=== PATIENT | male | born 1970 | race Caucasian/White ===

== ENCOUNTER → 2018-12-24 | Outpatient (CLI) | payer BC ==
--- NOTE | 2018-12-25 09:02 | US ---
EXAMINATION TYPE: US groin RT DATE OF EXAM: 12/24/2018 COMPARISON: NONE CLINICAL HISTORY: C85.98Non-Hodgkin lymphoma, unspecified, lymp, R59. Hx lymphoma x 1991 and 2001. Ri ght groin palpable. Area of palpable scanned. Enlarged lymph node visualized - 4.1 x 2.4 x 1.6 cm. Lobular contour is pr esent. Fatty hilus is present. IMPRESSION: Abnormal enlarged right groin node.
== END ==
LOC: RADUSMAIN 17:37
PROVIDERS: ATTEND Internal Medicine Hematology & Oncology
DX: R93.5 Abnormal findings on diagnostic imaging of other abdominal regions, including retroperitoneum (principal); R59.1 Generalized enlarged lymph nodes

== ENCOUNTER 2019-01-05 08:33 | Day surgery (SDC) | payer BC ==
[2019-01-05 08:52] VITALS: RESP 20; TEMP 97.6
[2019-01-05] MEDS ORDERED: ALPRAZolam 0.5 MG TAB PO STA (09:04)
[2019-01-05 10:06] VITALS: BP 135/90; PULSE 84
--- NOTE | 2019-01-05 10:25 | US ---
ULTRASOUND GUIDED CORE BIOPSY RIGHT GROIN LYMPHADENOPATHY: CLINICAL HISTORY: Enlarged lymph nodes within the right groin FINDINGS: The procedure was explained to the patient. The risks, complications, benefits and alternatives were discussed and any questions were answered. Informed consent was obtained. Patient was placed supin e on the ultrasound table and prepped and draped in the usual sterile fashion. Utilizing a 18-gauge core biopsy needle, four passes were made into the requested lymph node. Patient was stable throughout the procedure. Pathology is pending. All elements of maximal barrier technique were utilized. IMPRESSION: 1. Successful ultrasound guided core biopsy right groin lymph node. Pathology pending.
== END 2019-01-05 10:25 | disposition home or self-care (01) ==
LOC: RADPROMAIN 08:33
PROVIDERS: ATTEND Internal Medicine Hematology & Oncology
DX: R59.0 Localized enlarged lymph nodes (principal)
CPT/HCPCS: 38505; 76942; 88305; 88341; 88342

== ENCOUNTER → 2020-05-26 | Outpatient (CLI) | payer BC ==
--- NOTE | 2020-05-26 13:24 | XR ---
Lumbosacral spine HISTORY: Low back pain 5 views of lumbosacral spine Lumbar vertebral bodies show preserved height, alignment, and bone mineralization. Disc spaces are ma intained with exception of some mild disc height loss L4-5, mild spondylosis. No evident spondylolysi s. IMPRESSION: Mild degenerative disc changes, consider lumbar MRI.
== END | disposition home or self-care (01) ==
LOC: RADXRYALE 11:16
PROVIDERS: ATTEND Physician Assistant Medical
DX: M51.37 Other intervertebral disc degeneration, lumbosacral region (principal)
CPT/HCPCS: 72110

== ENCOUNTER → 2020-06-14 | Outpatient (CLI) | payer BC ==
--- NOTE | 2020-06-14 09:19 | MR ---
EXAMINATION TYPE: MR lumbar spine wo/w con DATE OF EXAM: 06/14/2020 COMPARISON: Plain film 05/26/2020 HISTORY: RT leg pain and numb feeling in RT foot, history of cancer TECHNIQUE: Multiplanar, multisequence images of the lumbar spine were acquired utilizing 7.5 mL intravenous Gada vist gadolinium contrast. L1-L2: Normal disc appearance without desiccation. No herniation, protrusion or disc bulging. No ca nal stenosis is present. Foramina are patent bilaterally. L2-L3: Normal disc appearance without desiccation. No herniation, protrusion or disc bulging. No ca nal stenosis is present. Foramina are patent bilaterally. L3-L4: Posterior broad-based disc bulge causes minimal anterior mass effect on the thecal sac. No sig nificant foraminal encroachment. L4-L5: Posterior broad-based disc bulge causes anterior mass effect on the thecal sac. No significant foraminal encroachment. Some minimal enhancement present posterior disc space, increased signal on T 2-weighted sequences suggestive small annular tear. L5-S1: There is a posterior broad-based disc bulge causing anterior mass effect on the thecal sac tre ewhat eccentric towards the right, there is likely contact with the right S1 nerve root. Suspect some disc material posterior to the S1 vertebral body, some peripheral enhancement is noted this level, e xtension of disc material is likely, small sequestered fragment is not excluded. Lumbar segments are intact. No paraspinal masses are identified. Conus medullaris has a normal appe arance. There is a slight spinal curvature. Lumbar vertebral bodies show preserved height and bone ma rrow signal. There is minimal endplate discogenic marrow signal change, spondylosis. Some loss of dis c signal present L4-5 and L5-S1. Tarlov cysts noted over the sacrum. No significant spinal stenosis. IMPRESSION: Disc herniation as described at L5-S1, correlate for right S1 radiculopathy. Additional findings abov e.
== END | disposition home or self-care (01) ==
LOC: RADMRIMAIN 07:53
PROVIDERS: ATTEND Physician Assistant Medical
DX: M51.27 Other intervertebral disc displacement, lumbosacral region (principal)
CPT/HCPCS: 72158; A9585

== ENCOUNTER → 2020-11-21 | Outpatient (CLI) | payer BC ==
--- NOTE | 2020-11-21 10:36 | CT ---
EXAMINATION TYPE: CT abdomen pelvis w con DATE OF EXAM: 11/21/2020 COMPARISON: None HISTORY: Incisional hernia w/o obstruction or gangrene CT DLP: 623.9 mGycm Automated exposure control for dose reduction was used. TECHNIQUE: Helical acquisition of images from the lung bases through the pelvis have been completed. CONTRAST: Performed with Oral Contrast and with IV Contrast, patient injected with 100 mL of Isovue 300. FINDINGS: There is syncope increased density within subcutaneous fat within the left lower quadrant, some questionable focal small areas of skin thickening, no definite hernia however. Some increased at tenuation also noted in the subcutaneous fat on axial image 57 in the infraumbilical location midline . LUNG BASES: No significant abnormality is appreciated. AORTA: No significant abnormality is appreciated. LIVER/GB: 1 innumerable focal areas of low-attenuation are scattered within the liver which statistic ally are likely to represent cysts, the gallbladder is normal. PANCREAS: No significant abnormality is seen. SPLEEN: No significant abnormality is seen. ADRENALS: No significant abnormality is seen. KIDNEYS: Cortical cyst is noted associated with the posterior right kidney measuring 17 mm REPRODUCTIVE ORGANS: Prostate shows associated calcification BOWEL: Retained fecal debris present throughout the distribution of the colon, correlate for fecal s tasis. No evident appendicitis. FREE AIR: No Free Air visible. ASCITES: None visible. PELVIC ADENOPATHY: None visualized. RETROPERITONEAL ADENOPATHY: No Retroperitoneal Adenopathy visible. URINARY BLADDER: No significant abnormality is seen. OSSEOUS STRUCTURES: There is some degenerative disc disease noted at the lumbosacral junction. IMPRESSION: FINDINGS MAY REPRESENT SOME FOCAL SCAR TISSUE IN THE LEFT LOWER QUADRANT AND LOWER ABDOMEN. CORRELATE FOR FECAL STASIS. ADDITIONAL NONSPECIFIC FINDINGS ABOVE.
== END | disposition home or self-care (01) ==
LOC: RADCTMAIN 06:50
PROVIDERS: ATTEND Surgery
DX: R93.5 Abnormal findings on diagnostic imaging of other abdominal regions, including retroperitoneum (principal)
CPT/HCPCS: 74177; Q9967 ×2

== ENCOUNTER → 2023-01-27 | Outpatient (CLI) | payer BC ==
--- NOTE | 2023-01-27 11:11 | XR ---
EXAMINATION TYPE: XR thoracic spine complete DATE OF EXAM: 01/27/2023 10:52 AM INDICATION: Patient age:Male; 52 years old; Reason for study: M546 THOR PAIN; [facility]. COMPARISON: None TECHNIQUE: 2 views of the thoracic spine in frontal, lateral, Schwimmer's projections. FINDINGS: No evidence of acute fracture. There is no evidence of disk space narrowing or loss of vertebral bod y height. There is normal alignment of the thoracic vertebral bodies. IMPRESSION: No acute osseous pathology.
== END | disposition home or self-care (01) ==
LOC: RADXRYALE 10:38
PROVIDERS: ATTEND Family Medicine
DX: M54.6 Pain in thoracic spine (principal)
CPT/HCPCS: 72072